=== PATIENT | male | born 1965 | race Caucasian/White ===

== ENCOUNTER 2020-09-02 13:12 | Observation (INO) | payer BC ==
[2020-09-02] MEDS ORDERED: NITROGLYCERIN SL TABS 0.4 MG TAB SUBLINGUAL STA (13:40)
[2020-09-02] MEDS ORDERED: ASPIRIN 81 MG PO STA (13:40)
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
[2020-09-02 13:55] LABS: Basophils # (A) 0.1 k/uL (0-0.2); Basophils % (A) 1 %; Eosinophils # (A) 0.2 k/uL (0-0.7); Eosinophils % (A) 2 %; HCT 40.6 % (39.0-53.0); HGB 14.4 gm/dL (13.0-17.5); Lymphocytes # (A) 1.7 k/uL (1.0-4.8); Lymphocytes % (A) 21 %; MCH 32.2 pg (25.0-35.0); MCHC 35.6 g/dL (31.0-37.0); MCV 90.5 fL (80.0-100.0); Mean Platelet Volume 7.3; Monocytes # (A) 0.5 k/uL (0-1.0); Monocytes % (A) 6 %; Neutrophils # (A) 5.6 k/uL (1.3-7.7); Neutrophils % (A) 69 %; Platelet Count 222 k/uL (150-450); RBC 4.48 m/uL (4.30-5.90); RDW 12.6 % (11.5-15.5); WBC 8.1 k/uL (3.8-10.6)
--- NOTE | 2020-09-02 14:07 | XR ---
EXAMINATION TYPE: XR chest 2V DATE OF EXAM: 09/02/2020 COMPARISON: NONE HISTORY: Chest pain. TECHNIQUE: Frontal and lateral views of the chest are obtained. FINDINGS: There is no focal air space opacity, pleural effusion, or pneumothorax seen. The cardiac silhouette size is within normal limits. The osseous structures are intact. IMPRESSION: No acute cardiopulmonary process.
[2020-09-02 14:13] LABS: ALT 15 U/L (4-49); AST 23 U/L (17-59); African American GFR (CKD) >90 (>60 ml/min/1.73 sqM); Albumin 3.9 g/dL (3.5-5.0); Alkaline Phosphatase 61 U/L (38-126); Anion Gap 6 mmol/L; Blood Urea Nitrogen 19 mg/dL (9-20); Calcium 8.8 mg/dL (8.4-10.2); Carbon Dioxide 29 mmol/L (22-30); Chloride 107 mmol/L (98-107); Creatine Kinase 73 U/L (55-170); D-Dimer 0.26 mg/L FEU (<0.60); Glucose 127 mg/dL (74-99); INR 0.9 (<1.2); Lipase 39 U/L (23-300); Magnesium 1.9 mg/dL (1.6-2.3); Non-African American GFR(CKD) 87 (>60 ml/min/1.73 sqM); Partial Thromboplastin Time 22.5 sec (22.0-30.0); Potassium 3.9 mmol/L (3.5-5.1); Sodium 142 mmol/L (137-145); Total Bilirubin 0.4 mg/dL (0.2-1.3)
[2020-09-02] MEDS ORDERED: NITROGLYCERIN SL TABS 0.4 MG TAB SUBLINGUAL PRN (16:04)
[2020-09-02] MEDS ORDERED: HEPARIN SODIUM 1,000 UN/ML (10ML VL) IV ONE (16:04)
[2020-09-02] MEDS ORDERED: HEPARIN SOD,PORK IN 0.45% NACL 25,000 UNIT in 0.45% NACL 1 250ML.BAG IV SCH (16:15)
[2020-09-02] MEDS: SODIUM CHLORIDE 0.9% 1,000 ML IV SCH (16:28)
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
[2020-09-02 18:41] LABS: C Reactive Protein 0.5 mg/dL (<1.0)
[2020-09-02] MEDS: MELATONIN 5 MG TABLET PO SCH (20:21)
[2020-09-02] MEDS: guaiFENesin 600 MG TABLET.ER PO SCH (20:21)
[2020-09-03] MEDS: PANTOPRAZOLE 40 MG TABLET PO SCH (07:51)
[2020-09-03] MEDS: ENOXAPARIN 40 MG/0.4 ML SYRINGE SQ SCH (07:52)
[2020-09-03] MEDS: CHOLECALCIFEROL 25 MCG (1000 IU) TABLET PO SCH (07:52)
[2020-09-03] MEDS: ASCORBIC ACID 500 MG TAB PO SCH (07:52)
[2020-09-03] MEDS: guaiFENesin 600 MG TABLET.ER PO SCH ×2 (07:58→19:30)
[2020-09-03] MEDS ORDERED: ASPIRIN 325 MG TAB PO SCH (09:00)
[2020-09-03 09:51] LABS: Chol/HDL Ratio 3.64; LDL Cholesterol,Calculated 59.4 mg/dL (0.0-131.0); VLDL Calculation 56.6 mg/dL (5.00-40.00)
[2020-09-03 09:56] LABS: Ferritin 44.6 ng/mL (22.0-322.0)
--- NOTE | 2020-09-03 12:54 | P.CRDCN ---
History of Present Illness Consult date: 09/03/20 History of present illness: CHIEF COMPLAINT: Chest pain HISTORY OF PRESENT ILLNESS: This is a 54-year-old male with a history of former nicotine dependence and GI bleeding secondary to an ulcer. 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 Patient presented to the hospital secondary to congestion, sore throat, and right arm discomfort. Patient was found to be positive for Covid 19. Case discussed with patients nurse who states patient has had no complaints of chest pain. DIAGNOSTICS: EKG reveals sinus mechanism with no signs of acute ischemia Chest xray negative for acute process Laboratory data: WBC 8.1. Hemoglobin 14.4. Platelet count 222. D-dimer 0.26. Sodium 142. Potassium 3.9. BUN 19. Creatinine 0.98. Magnesium 1.9. Troponin negative 3. Current home cardiac medications include none REVIEW OF SYSTEMS: Thorough review of systems not completed secondary to limited evaluation/examina tion due to Covid19 PHYSICAL EXAM: Thorough physical exam not completed secondary to limited evaluation/examination due to Covid19 ASSESSMENT: Complaints of sore throat and congestion Acute COVID-19 Right arm pain, troponins negative 3 Former nicotine dependence History of GI bleeding secondary to ulcer PLAN: An acute coronary event has been ruled out Continue aspirin 81 mg daily Obtain 2-D echo to assess cardiac structure and function Patient may follow up on an outpatient basis for a stress test when he recovers from COVID-19 If 2D echo does not reveal any significant abnormalities, there will be no further inpatient recommendations from a cardiac standpoint Nurse practitioner note has been reviewed by physician. Signing provider agrees with the documented findings, assessment, and plan of care. Past Medical History Past Medical History: GI Bleed Additional Past Medical History / Comment(s): ulcer History of Any Multi-Drug Resistant Organisms: None Reported Past Surgical History: No Surgical Hx Reported Past Anesthesia/Blood Transfusion Reactions: No Reported Reaction Additional Past Anesthesia/Blood Transfusion Reaction / Comment(s): states has not had anesthesia before Smoking Status: Former smoker Past Alcohol Use History: Occasional Past Drug Use History: None Reported - Past Family History Mother Family Medical History: No Reported History Medications and Allergies Home Medications Medication Instructions Recorded Confirmed Type No Known Home Medications 09/02/20 09/02/20 History Allergies Allergy/AdvReac Type Severity Reaction Status Date / Time No Known Allergies Allergy Verified 09/02/20 16:14 Physical Exam Vitals: Vital Signs Temp Pulse Pulse Resp BP BP BP 09/03/20 07:32 09/03/20 07:00 97.4 F L 56 L 18 121/78 09/03/20 02:15 63 18 09/03/20 02:00 98.3 F 78 18 127/74 09/02/20 20:21 63 18 09/02/20 20:00 97.9 F 63 18 115/70 09/02/20 16:19 97.5 F L 16 141/77 09/02/20 15:15 68 18 104/80 09/02/20 13:51 78 18 134/88 09/02/20 13:13 97.7 F 61 18 127/80 Pulse Ox 09/03/20 07:32 96 09/03/20 07:00 98 09/03/20 02:15 09/03/20 02:00 93 L 09/02/20 20:21 09/02/20 20:00 96 09/02/20 16:19 97 09/02/20 15:15 100 09/02/20 13:51 99 09/02/20 13:13 100 Intake and Output 09/02/20 09/03/20 09/03/20 22:59 06:59 14:59 Other: Voiding Method Toilet Toilet Toilet # Voids 2 3 Weight 65.771 kg Results 09/02/20 13:41 09/02/20 13:41 Cardiac Enzymes 09/02/20 09/02/20 09/02/20 Range/Units 13:41 13:41 17:37 AST 23 (17-59) U/L Lactate Dehydrogenase (313-618) U/L Troponin I <0.012 <0.012 (0.000-0.034) ng/mL 09/02/20 09/02/20 Range/Units 17:37 20:49 AST (17-59) U/L Lactate Dehydrogenase 369 (313-618) U/L Troponin I <0.012 (0.000-0.034) ng/mL Coagulation 09/02/20 Range/Units 13:41 PT 10.0 (9.0-12.0) sec APTT 22.5 (22.0-30.0) sec Lipids 09/02/20 Range/Units 13:41 Triglycerides 283.0 H (0.0-149.0) mg/dL Cholesterol 160 (0-200) mg/dL HDL Cholesterol 44.0 (40.0-60.0) mg/dL Cholesterol/HDL Ratio 3.64 CBC 09/02/20 Range/Units 13:41 WBC 8.1 (3.8-10.6) k/uL RBC 4.48 (4.30-5.90) m/uL Hgb 14.4 (13.0-17.5) gm/dL Hct 40.6 (39.0-53.0) % Plt Count 222 (150-450) k/uL Comprehensive Metabolic Panel 09/02/20 Range/Units 13:41 Sodium 142 (137-145) mmol/L Potassium 3.9 (3.5-5.1) mmol/L Chloride 107 (98-107) mmol/L Carbon Dioxide 29 (22-30) mmol/L BUN 19 (9-20) mg/dL Creatinine 0.98 (0.66-1.25) mg/dL Glucose 127 H (74-99) mg/dL Calcium 8.8 (8.4-10.2) mg/dL AST 23 (17-59) U/L ALT 15 (4-49) U/L Alkaline Phosphatase 61 (38-126) U/L Total Protein 6.0 L (6.3-8.2) g/dL Albumin 3.9 (3.5-5.0) g/dL Current Medications Generic Name Dose Route Start Last Admin Trade Name Freq PRN Reason Stop Dose Admin Ascorbic Acid 1,000 mg 09/03/20 09:00 09/03/20 07:52 Ascorbic Acid 500 Mg Tab PO 1,000 mg DAILY RUSTY Administration Aspirin 81 mg 09/04/20 09:00 Aspirin 81 Mg PO DAILY RUSTY Cholecalciferol 100 mcg 09/03/20 09:00 09/03/20 07:52 Cholecalciferol 25 Mcg (1000 Iu) Tablet PO 100 mcg DAILY RUSTY Administration Enoxaparin Sodium 40 mg 09/03/20 09:00 09/03/20 07:52 Enoxaparin 40 Mg/0.4 Ml Syringe SQ 40 mg DAILY RUSTY Administration Guaifenesin 600 mg 09/02/20 21:00 09/03/20 07:58 Guaifenesin 600 Mg Tablet.Er PO 600 mg Q12HR RUSTY Administration Sodium Chloride 1,000 mls @ 20 mls/hr 09/02/20 16:15 09/02/20 16:28 Saline 0.9% IV 20 mls/hr .Q24H RUSTY Administration Melatonin 5 mg 09/02/20 21:00 09/02/20 20:21 Melatonin 5 Mg Tablet PO 5 mg HS RUSTY Administration Nitroglycerin 0.4 mg 09/02/20 16:04 Nitroglycerin Sl Tabs 0.4 Mg Tab SUBLINGUAL Q5M PRN Chest Pain Pantoprazole Sodium 40 mg 09/03/20 07:30 09/03/20 07:51 Pantoprazole 40 Mg Tablet PO 40 mg AC-BRKFST RUSTY Administration Intake and Output 09/02/20 09/03/20 09/03/20 22:59 06:59 14:59 Other: Voiding Method Toilet Toilet Toilet # Voids 2 3 Weight 65.771 kg 09/02/20 13:41 09/02/20 13:41
--- NOTE | 2020-09-03 13:03 | P.PN ---
Subjective Progress Note Date: 09/03/20 Patient is doing well today. He denies any complaints. Objective - Vital Signs Vital signs: Vital Signs Temp 97.4 F L 09/03/20 07:00 Pulse 56 L 09/03/20 07:00 Resp 18 09/03/20 07:00 BP 121/78 09/03/20 07:00 Pulse Ox 96 09/03/20 07:32 Intake & Output 09/02/20 09/03/20 09/03/20 18:59 06:59 18:59 Weight 65.771 kg Other: Voiding Method Toilet Toilet # Voids 3 - Exam General: The patient is awake and alert, in no distress Eye: there is normal conjunctiva bilaterally. Neck: The neck is supple, there is no JVD. Cardiovascular: Normal S1-S2, no S3-S4, no murmurs. Respiratory: Lungs clear to auscultation bilaterally Gastrointestinal: Abdomen is soft, nontender Musculoskeletal: There is no pedal edema. Neurological:. Speech is normal. Skin: Skin is warm and dry - Labs CBC & Chem 7: 09/02/20 13:41 09/02/20 13:41 Labs: Abnormal Lab Results - Last 24 Hours (Table) 09/02/20 09/02/20 09/02/20 Range/Units 13:41 13:41 16:14 Glucose 127 H (74-99) mg/dL Total Protein 6.0 L (6.3-8.2) g/dL Triglycerides 283.0 H (0.0-149.0) mg/dL VLDL Cholesterol, Calc 56.60 H (5.00-40.00) mg/dL Coronavirus (PCR) Detected A (Not Detectd) Assessment and Plan Assessment: 1. Right chest discomfort, most likely atypical in nature. ACS ruled out. Twelve-lead EKG showed no acute ischemic changes. Serial troponin negative. Patient was seen and evaluated by cardiology. Started on baby aspirin. Echocardiogram ordered to assess cardiac function and any wall motion ab normalities. 2. COVID-19 upper respiratory tract infection, we will continue supportive care. Vitamin C, vitamin D, and melatonin. Chest x-ray is unremarkable. Inflammatory markers and d-dimer normal 3. DVT prophylaxis with subcu Lovenox Anticipate discharge home tomorrow
[2020-09-03] MEDS: SODIUM CHLORIDE 0.9% 1,000 ML IV SCH (16:22)
[2020-09-03] MEDS: MELATONIN 5 MG TABLET PO SCH (19:31)
[2020-09-04 07:56] VITALS: BP 115/76; PULSE 61; RESP 18; TEMP 97.4
[2020-09-04] MEDS: PANTOPRAZOLE 40 MG TABLET PO SCH (07:57)
[2020-09-04] MEDS: ASCORBIC ACID 500 MG TAB PO SCH (07:59)
[2020-09-04] MEDS: guaiFENesin 600 MG TABLET.ER PO SCH (07:59)
[2020-09-04] MEDS: CHOLECALCIFEROL 25 MCG (1000 IU) TABLET PO SCH (08:00)
[2020-09-04] MEDS: ENOXAPARIN 40 MG/0.4 ML SYRINGE SQ SCH (08:01)
[2020-09-04] MEDS ORDERED: ASPIRIN 81 MG PO SCH (09:00)
--- NOTE | 2020-09-04 11:16 | P.PN ---
Subjective Progress Note Date: 09/04/20 CHIEF COMPLAINT: Chest pain HISTORY OF PRESENT ILLNESS: 09/03/2020 This is a 54-year-old male with a history of former nicotine dependence and GI bleeding secondary to an ulcer. 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 Patient presented to the hospital secondary to congestion, sore throat, and right arm discomfort. Patient was found to be positive for Covid 19. Case discussed with patients nurse who states patient has had no complaints of chest pain. EKG reveals sinus mechanism with no signs of acute ischemia Chest xray negative for acute process Laboratory data: WBC 8.1. Hemoglobin 14.4. Platelet count 222. D-dimer 0.26. Sodium 142. Potassium 3.9. BUN 19. Creatinine 0.98. Magnesium 1.9. Troponin negative 3. Current home cardiac medications include none 09/04/2020 Patient remains on the cardiac observation unit. He is admitted with Covid 19. Per nursing, the patient has not reported any further episodes of chest pain or pressure. Denies shortness of breath. Blood pressure 115/76. Heart rate in the 60s. He is maintaining sinus mechanism. He is afebrile. He is on room air with oxygen saturations greater than 92%. PHYSICAL EXAM: Thorough physical exam not completed secondary to limited evaluation/examination due to Covid19 ASSESSMENT: Complaints of sore throat and congestion Acute COVID-19 Right arm pain, troponins negative 3 Former nicotine dependence History of GI bleeding secondary to ulcer PLAN: 2-D echo ordered to assess cardiac structure and function Patient may follow up on an outpatient basis for a stress test when he recovers from COVID-19 If 2D echo does not reveal any significant abnormalities, there will be no further inpatient recommendations from a cardiac standpoint and patient may be discharged home from a cardiac standpoint Follow up outpatient with Dr. Dawn Nurse practitioner note has been reviewed by physician. Signing provider agrees with the documented findings, assessment, and plan of care. Objective - Vital Signs Vital signs: Vital Signs Temp 97.4 F L 09/04/20 07:53 Pulse 61 09/04/20 07:53 Resp 18 09/04/20 07:53 BP 115/76 09/04/20 07:53 Pulse Ox 96 09/04/20 02:00 Intake & Output 09/03/20 09/04/20 09/04/20 18:59 06:59 18:59 Intake Total 236 Balance 236 Intake: Oral 236 Other: Voiding Method Toilet Toilet Toilet # Voids 3 3 - Labs CBC & Chem 7: 09/02/20 13:41 09/02/20 13:41
--- NOTE | 2020-09-04 13:00 | ECHOF ---
Referral Reason:LV function MEASUREMENTS -------- HEIGHT: 170.2 cm WEIGHT: 65.8 kg BP: 106/66 RVIDd: 3.7 cm (< 3.3) IVSd: 1.4 cm (0.6 - 1.1) LVIDd: 3.6 cm (3.9 - 5.3) LVPWd: 1.3 cm (0.6 - 1.1) IVSs: 1.5 cm LVIDs: 2.3 cm LVPWs: 1.8 cm LAESV Index (A-L): 22.00 ml/m Ao Diam: 3.1 cm (2.0 - 3.7) AV Cusp: 1.9 cm (1.5 - 2.6) MV EXCURSION: 19.315 mm (> 18.000) MV EF SLOPE: 53 mm/s (70 - 150) EPSS: 0.4 cm MV E Iam: 0.70 m/s MV DecT: 184 ms MV A Iam: 0.72 m/s MV E/A Ratio: 0.98 RAP: 5.00 mmHg RVSP: 24.69 mmHg FINDINGS -------- Sinus rhythm. This was a technically adequate study. The left ventricular size is normal. There is moderate concentric left ventricular hypertrophy. O verall left ventricular systolic function is normal with, an EF between 55 - 60 %. The diastolic fi lling pattern is normal for the age of the patient 10.94. The right ventricle is mildly enlarged. Normal LA size by volume 22+/-6 ml/m2. The right atrial size is normal. Interatrial and interventricular septum intact. There is no evidence of aortic regurgitation. There is no evidence of aortic stenosis. There is trace mitral regurgitation. Mild tricuspid regurgitation present. There is no evidence of pulmonary hypertension. The right v entricular systolic pressure, as measured by Doppler, is 24.69mmHg. Trace/mild (physiologic) pulmonic regurgitation. The aortic root size is normal. Normal inferior vena cava with normal inspiratory collapse consistent with estimated right atrial pre ssure of 5 mmHg. There is no pericardial effusion. CONCLUSIONS -------- 1. The left ventricular size is normal. 2. There is moderate concentric left ventricular hypertrophy. 3. Overall left ventricular systolic function is normal with, an EF between 55 - 60 %. 4. The diastolic filling pattern is normal for the age of the patient 10.94 5. The right ventricle is mildly enlarged. 6. There is trace mitral regurgitation. 7. Mild tricuspid regurgitation present. 8. Trace/mild (physiologic) pulmonic regurgitation. 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
--- NOTE | 2020-09-04 14:05 | P.DS ---
Providers Date of admission: 09/02/20 16:06 Expected date of discharge: 09/04/20 Attending physician: Reji Barclay Consults: 09/02/20 16:06 Consult Physician Urgent Consulting Provider: Tray Betancourt Consult Reason/Comments: Chest pain Do you want consulting provider notified?: Yes Primary care physician: [facility] Course: This is a 54-year-old male with no significant past medical history that presented to the emergency room with right chest discomfort and shoulder pain. Patient was evaluated in the ER and placed on observation for further management of his medical problems noted below. 1. Right chest discomfort, most likely atypical in nature. ACS ruled out. Twelve-lead EKG showed no acute ischemic changes. Serial troponin negative. Vicente freire was seen and evaluated by cardiology. Echocardiogram showed preserved ejection fraction with no wall motion abnormalities. Patient will follow-up in the office for cardiac stress testing in the next week or 2. 2. COVID-19 upper respiratory tract infection, we will continue supportive care. Vitamin C, vitamin D, and melatonin. Chest x-ray is unremarkable. Inflammatory markers and d-dimer normal Patient was advised to quarantine and wear a mask around people for the next 10 days. He will be discharged home in a stable condition. Patient Condition at Discharge: Fair Plan - Discharge Summary Discharge Rx Participant: No New Discharge Prescriptions: No Action No Known Home Medications Discharge Medication List No Known Home Medications 09/02/20 [History] Follow up Appointment(s)/Referral(s): Santo Carcamo MD [Primary Care Provider] - 1-2 days Barbara Dawn MD [STAFF PHYSICIAN] - 1 Week Discharge Disposition: HOME SELF-CARE
== END 2020-09-04 14:52 | disposition home or self-care (01) ==
LOC: EC 13:12 → 6NMEDSUR 16:06
PROVIDERS: ADMIT Internal Medicine; ATTEND Internal Medicine
DX: U07.1 COVID-19 (principal); J06.9 Acute upper respiratory infection, unspecified; R07.89 Other chest pain; M79.601 Pain in right arm; M25.519 Pain in unspecified shoulder; Z79.899 Other long term (current) drug therapy; Z87.81 Personal history of (healed) traumatic fracture; Z87.891 Personal history of nicotine dependence; Z87.19 Personal history of other diseases of the digestive system; Z87.11 Personal history of peptic ulcer disease
CPT/HCPCS: 96372 ×2; 93005 ×2; 96376; 96365; 99285; 36415; 94760; 93306; 85379; 83880; 80061; 80053; 82728; 82550; 83615; 83690; 83735; 84484; 85025; 85610; 85730; 86140; 87635; 71046; G0378 ×3; J1650 ×2; J1644 ×2

== ENCOUNTER → 2022-03-08 | Day surgery (SDC) | payer BC ==
[~2022-03-08] MED LIST: LIDOCAINE 1% (10MG/ML) FOR IV START INTRADERMA PRN; LIDOCAINE 2% INJ 20 MG/ML (2 ML VIAL) ONE; PROPOFOL 10 MG/ML 20 ML VIAL IV ONE
[2022-03-08 07:36] VITALS: TEMP 97.4
[2022-03-08] MEDS: LACTATED RINGERS 1,000 ML IV SCH ×2 (07:39→08:24)
--- NOTE | 2022-03-08 08:53 | P.PCN ---
Date of Procedure: 03/08/22 Procedure(s) Performed: Brief history: Patient is a pleasant 56-year-old white male scheduled for an elective upper endoscopy as well as colonoscopy as a part of evaluation of epigastric discomfort and prior history of colon polyps. His last colonoscopy was 5 years ago. Procedure performed: Esophagogastroduodenoscopy with biopsy Colonoscopy with snare polypectomy. Preoperative diagnosis: Epigastric discomfort History of colon polyp Anesthesia: MAC Procedure: After informed consent was obtained from the patient was brought into the endoscopy unit and IV sedation was administered by anesthesia under continuous monitoring. Initially upper endoscopy was done. The Olympus GF 160 video endoscope was inserted inserted into the mouth and esophagus intubated without any difficulty and was gradually advanced into the stomach and duodenum and carefully examined. The bulb and second part of the duodenum appeared normal. The scope was then withdrawn into the stomach adequately insufflated with air and upon careful examination the antrum and areas of erythema consistent with gastritis and biopsies were done from this area. Mucosa of thebody, cardia and fundus appeared normal. The scope was then withdrawn into the esophagus. The GE junction was located at 40 cm to the incisors. It appeared regular with no erythema erosions or ulcerations. Rest of the esophagus appeared normal. Patient tolerated the procedure well. At this time the patient continued to remain sedation. Initial digital rectal examination was normal. Olympus CF 160 video colonoscope was then inserted into the rectum and gradually advanced to the cecum without any difficulty. Careful examination was performed as the scope was gradually being withdrawn. The prep was excellent. The cecum, ascending colon, appeared normal. Transverse colon there was a 3 mm polyp that was removed by cold biopsy. Rest transverse colon, descending colon, appeared normal. In the distal sigmoid colon there were 2 polyps measuring 1 cm in size removed by snare polypectomy. Scattered sigmoidal diverticula seen. Rest of the sigmoid colon and rectum appeared normal. Retroflexion was performed in the rectum and no lesions were noted. Patient tolerated the procedure well. Impression: 1. Upper endoscopy revealed mild antral gastritis but no evidence of esophagitis or peptic ulcer 2. Colonoscopy revealed a 3 mm transverse colon polyp status post cold biopsy, 1 cm 2 distal sigmoid colon polyps status post polypectomy and scattered sigmoid diverticula Recommendations: Findings of this examination were discussed with the patient as well as his family. He was advised to follow with the biopsy results. If the biopsy reveals adenoma he can have a repeat colonoscopy in 3 years.
[2022-03-08 09:12] VITALS: BP 115/80; PULSE 55; RESP 16
== END ==
LOC: ORWHC2ENDO 07:14
PROVIDERS: ATTEND Internal Medicine Gastroenterology
DX: Z12.11 Encounter for screening for malignant neoplasm of colon (principal); K29.50 Unspecified chronic gastritis without bleeding; D12.5 Benign neoplasm of sigmoid colon; M10.9 Gout, unspecified; F12.90 Cannabis use, unspecified, uncomplicated; F17.200 Nicotine dependence, unspecified, uncomplicated; Z86.010 Personal history of colon polyps; Z87.19 Personal history of other diseases of the digestive system
CPT/HCPCS: 88305; 88342; 45380; 45385; 43239; J2704; J2001

== ENCOUNTER → 2023-08-07 | Outpatient (CLI) | payer BC ==
--- NOTE | 2023-08-07 22:46 | CTL ---
EXAMINATION TYPE: CT Low Dose Lung DATE OF EXAM ORDERED: 08/07/2023 HISTORY: Former smoker, quit 1 month ago, 30 pack-year history. Lung cancer screening CT DLP: 75.[address] CTDI: 2.0 mGy Automated exposure control for dose reduction was used. SCREENING VISIT: First screening visit COMPARISON: Chest radiograph 09/02/2020 TECHNIQUE: Low dose computed tomography scan was performed through the chest at 1 mm thick sections a nd reconstructed images in multiple planes at 1 mm and [address] DIAGNOSTIC QUALITY: Satisfactory FINDINGS: Nodules: Calcified granuloma within the right lower lobe measuring up to 5.2 mm. Right lower lobe 4.4 mm pulmo nary nodule (series 4, image 200). Right lower lobe 4.5 mm pulmonary nodule (series 4, image 158). LUNGS: COPD: Severity: None Fibrosis: Severity: None Lymph nodes: None Other findings: Linear scarring and/or atelectasis within the bilateral lung bases. Pulmonary cystic changes within the right lower lobe. Largest measures up to 4.7 cm. RIGHT PLEURAL SPACE: Effusion: None Calcification: None Thickening: None Pneumothorax: None LEFT PLEURAL SPACE: Effusion: None Calcification: None Thickening: None Pneumothorax: None HEART: Heart Size: Normal Coronary Calcification: None Pericardial Effusion: None OTHER FINDINGS: Upper abdomen: None Bony thorax: Remote bilateral anterior rib fractures. Remote sternal fracture. Supraclavicular region: None Other: None IMPRESSION: 1. Couple of right lower lobe pulmonary nodules measuring less than 5 mm. 2. Right lower lobe pulmonary cystic changes. CT LUNG RAD AND CT CHEST RECOMMENDATION: Lung-Rad 2 Benign Appearance or Behavior: Continue annual sc reening with LDCT in 12 months. S Modifier (other clinically significant findings): None
== END | disposition home or self-care (01) ==
LOC: RADCTMAIN 08:10
PROVIDERS: ATTEND Internal Medicine
DX: Z12.2 Encounter for screening for malignant neoplasm of respiratory organs (principal); J98.4 Other disorders of lung; R91.8 Other nonspecific abnormal finding of lung field; Z87.891 Personal history of nicotine dependence
CPT/HCPCS: 71271